=== PATIENT | male | born 1995 | race African-American/Black ===

== ENCOUNTER 2020-12-19 22:23 | Emergency (ER) | payer MEDICAID ==
[~2020-12-19] VITALS: Ht 188 cm; Wt 85.0 kg
[2020-12-19] MEDS ORDERED: NAPR-1176 MT (23:52)
[2020-12-20] MEDS ORDERED: ACETAMINOPHEN WITH CODEINE 300/30MG TABLET PO ONE
[2020-12-20 00:14] VITALS: BP 121/73
== END 2020-12-20 00:15 | disposition home or self-care (01) ==
LOC: ER 22:23
DX: S16.1XXA Strain of muscle, fascia and tendon at neck level, initial encounter (principal); S39.012A Strain of muscle, fascia and tendon of lower back, initial encounter; V49.9XXA Car occupant (driver) (passenger) injured in unspecified traffic accident, initial encounter; Y93.89 Activity, other specified; Y92.89 Other specified places as the place of occurrence of the external cause; Y99.8 Other external cause status
CPT/HCPCS: 99282

== ENCOUNTER 2021-05-26 19:53 | Emergency (ER) | payer MEDICAID ==
[~2021-05-26] VITALS: Ht 188 cm; Wt 93.0 kg
[~2021-05-26 19:53] MED LIST: NAPR-1176 MT
[2021-05-27] MEDS ORDERED: ACET-2708 MT (00:50)
[2021-05-27] MEDS ORDERED: NAPR-1176 MT (00:50)
[2021-05-27] MEDS ORDERED: SULF1TAB48 MT (00:50)
[2021-05-27] MEDS ORDERED: SULFAMETHOXAZOLE/TRIMETHOPRIM 800/160MG TABLET PO ONE (01:00)
[2021-05-27] MEDS ORDERED: IBUPROFEN 400MG TABLET PO ONE (01:00)
[2021-05-27] MEDS ORDERED: ACETAMINOPHEN 325MG TABLET PO ONE (01:00)
[2021-05-27 01:23] VITALS: BP 121/78
== END 2021-05-27 01:24 | disposition home or self-care (01) ==
LOC: ER 20:08
DX: L02.214 Cutaneous abscess of groin (principal); Z79.899 Other long term (current) drug therapy
CPT/HCPCS: 99284

== ENCOUNTER 2022-01-17 22:42 | Emergency (ER) | payer MEDICAID ==
[~2022-01-17] VITALS: Ht 188 cm; Wt 89.3 kg
[~2022-01-17 22:42] MED LIST changes: +ACET-2708 MT; +SULF1TAB48 MT
[2022-01-17 23:30] LABS: CLARITY URINE CLEAR (CLEAR); COLOR URINE YELLOW (YELLOW); KETONES URINE NEGATIVE (NEGATIVE); LEUKOCYTE ESTERASE URINE NEGATIVE (NEGATIVE); NITRITE URINE NEGATIVE (NEGATIVE); OCCULT BLOOD URINE NEGATIVE (NEGATIVE); PH URINE 6.5 (4.5-8.0); PROTEIN URINE NEGATIVE (NEGATIVE); SPECIFIC GRAVITY URINE 1.004 (1.005-1.030); UROBILINOGEN URINE 0.2 E.U./dL (0.2-1.0)
[2022-01-17] MEDS ORDERED: AZITHROMYCIN 500 MG TABLET PO ONE (23:45)
[2022-01-17] MEDS ORDERED: CEFTRIAXONE SODIUM 500 MG/VIAL IM ONE (23:45)
[2022-01-18] MEDS ORDERED: LIDOCAINE HCL 1% 10 MG/ML 10ML VIAL INJ SCH (00:15)
[2022-01-18 00:39] VITALS: BP 115/72
== END 2022-01-18 00:56 | disposition home or self-care (01) ==
LOC: ER 22:42
DX: R68.89 Other general symptoms and signs (principal); A64 Unspecified sexually transmitted disease
CPT/HCPCS: 81003; 96372; 99283; J0696; J3490

== ENCOUNTER 2022-12-28 14:42 | Emergency (ER) | payer MEDICAID ==
[~2022-12-28] VITALS: Ht 188 cm; Wt 102.0 kg
[2022-12-28 14:47] VITALS: BP 126/90
[2022-12-28] MEDS ORDERED: NAPR-681 MT (17:29)
== END 2022-12-28 18:03 | disposition home or self-care (01) ==
LOC: ER 14:42
DX: S60.221A Contusion of right hand, initial encounter (principal); Y04.0XXA Assault by unarmed brawl or fight, initial encounter; Y93.89 Activity, other specified; Y92.89 Other specified places as the place of occurrence of the external cause; Y99.8 Other external cause status
CPT/HCPCS: 73120; 99283

== ENCOUNTER 2023-12-06 23:44 | Emergency (ER) | payer MEDICAID ==
[~2023-12-06] VITALS: Ht 182.9 cm; Wt 95.0 kg
[~2023-12-06 23:44] MED LIST changes: +NAPR-681 MT
[2023-12-06 23:46] VITALS: O2SAT 98
[2023-12-07] MEDS: ACETAMINOPHEN 500MG TABLET PO ONE (00:55)
[2023-12-07] MEDS ORDERED: BO1 TP (02:11)
[2023-12-07] MEDS ORDERED: IBUP-2029 MT (02:11)
[2023-12-07 02:43] VITALS: BP 118/68; PULSE 78; RESP 18; TEMP 97.8
== END 2023-12-07 02:55 | disposition home or self-care (01) ==
LOC: ER 23:44
DX: S16.1XXA Strain of muscle, fascia and tendon at neck level, initial encounter (principal); S09.90XA Unspecified injury of head, initial encounter; M54.50 Low back pain, unspecified; V49.49XA Driver injured in collision with other motor vehicles in traffic accident, initial encounter; Y93.89 Activity, other specified; Y92.89 Other specified places as the place of occurrence of the external cause; Y99.8 Other external cause status
CPT/HCPCS: 99284